=== PATIENT | male | born 1980 | race African-American/Black ===

== ENCOUNTER → 2016-05-26 | Outpatient (CLI) | payer BC ==
[~2016-05-26] MED LIST: ACETAMINOPHEN PO; HYDROCHLOROTHIA25 MG PO; INDOMETHACIN50 MG PO; LAMISIL PO; LOTREL 10-40 M1 EACH PO; TRIAMTERENE-HC1 EAC1 PO; ULORIC40 MG PO
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
== END | disposition home or self-care (01) ==
LOC: CMRI 15:24
DX: M25.562 Pain in left knee (principal); M22.42 Chondromalacia patellae, left knee; M25.462 Effusion, left knee
CPT/HCPCS: 73721